=== PATIENT | female | born 1985 ===

== ENCOUNTER 2019-01-06 10:21 | Emergency (ER) | payer OTHER ==
[~2019-01-06] VITALS: Ht 152.4 cm; Wt 73.9 kg
[2019-01-06] MEDS ORDERED: PRENATABS RX T1 EACH (10:35)
== END 2019-01-06 15:45 | disposition home or self-care (01) ==
LOC: ER 10:21
DX: O20.0 Threatened abortion (principal); Z34.81 Encounter for supervision of other normal pregnancy, first trimester

== ENCOUNTER 2019-07-09 14:31 | Inpatient (IN) | payer OTHER ==
[~2019-07-09] VITALS: Ht 157.5 cm; Wt 2.7 kg
[~2019-07-09 14:31] MED LIST: PRENATABS RX T1 EACH
[2019-07-09] MEDS ORDERED: ASA81 MG PO (14:55)
== END 2019-07-12 15:07 | disposition home or self-care (01) | DRG 785 ==
LOC: LDR 14:31 → OB/GYN 14:31
PROVIDERS: ADMIT Obstetrics & Gynecology
PROC: 0UB70ZZ Excision of Bilateral Fallopian Tubes, Open Approach (ICD-10-PCS; 2019-07-09)
PROC: 4A033R1 Measurement of Arterial Saturation, Peripheral, Percutaneous Approach (ICD-10-PCS; 2019-07-09)
PROC: 4A1HXCZ Monitoring of Products of Conception, Cardiac Rate, External Approach (ICD-10-PCS; 2019-07-09)
PROC: 10D00Z1 Extraction of Products of Conception, Low, Open Approach (ICD-10-PCS; principal; 2019-07-09 17:00)
DX: O82 Encounter for cesarean delivery without indication (principal); O34.211 Maternal care for low transverse scar from previous cesarean delivery; Z3A.37 37 weeks gestation of pregnancy; Z37.0 Single live birth; Z30.2 Encounter for sterilization